=== PATIENT | female | born 1945 | race African-American/Black ===

== ENCOUNTER 2019-02-23 06:49 | Day surgery (SDC) | payer MEDICARE, MEDICAID ==
[~2019-02-23] VITALS: Ht 160 cm; Wt 49.0 kg
[~2019-02-23 06:49] MED LIST: LACTATED RINGERS 1,000 ML IV SCH
[2019-02-23] MEDS ORDERED: BUPIVACAINE HCL 0.5% (5MG/ML) 50ML ONE (09:01)
[2019-02-23] MEDS ORDERED: SKIN ADHESIVE 0.7 GM EA TOP ONE (09:01)
[2019-02-23] MEDS ORDERED: METHYLENE BLUE 50 MG/10 ML AMP IV ONE (09:23)
[2019-02-23] MEDS ORDERED: PROPOFOL 200MG/20ML VIAL IV ONE (09:50)
[2019-02-23] MEDS ORDERED: FENTANYL CITRATE/PF 50MCG/ML 2ML VIAL ONE (09:50)
[2019-02-23] MEDS ORDERED: MIDAZOLAM HCL 2 MG/2 ML VIAL ONE (09:50)
[2019-02-23] MEDS ORDERED: ATEN-42 PO (09:59)
[2019-02-23] MEDS ORDERED: DIAZ10TA PO (09:59)
[2019-02-23] MEDS ORDERED: CLON1PAT10 TD (09:59)
[2019-02-23] MEDS ORDERED: HYDR-3280 PO (09:59)
[2019-02-23] MEDS ORDERED: AMLO10TA80 PO (09:59)
[2019-02-23] MEDS ORDERED: DEXAMETHASONE 4MG/ML 1ML VIAL ONE (10:16)
[2019-02-23] MEDS ORDERED: SODIUM CHLORIDE 0.9% 10ML VIAL ONE (10:16)
[2019-02-23] MEDS ORDERED: LABETALOL HCL 5MG/ML VIAL 20ML IV ONE (10:16)
[2019-02-23] MEDS ORDERED: ONDANSETRON HCL 4MG/2ML INJ ONE (10:16)
[2019-02-23] MEDS ORDERED: LIDOCAINE HCL 1% 20ML VIAL (Pyxis) INJ ONE (10:16)
[2019-02-23] MEDS ORDERED: CEFAZOLIN SODIUM 1000MG/VIAL ONE (10:16)
[2019-02-23] MEDS ORDERED: MEPERIDINE HCL/PF 25MG/ML CPJ IV PRN (10:30)
[2019-02-23] MEDS ORDERED: LABETALOL 5MG/ML SYR 20 MG/4 ML SYRINGE IV PRN (10:30)
[2019-02-23] MEDS: HYDROMORPHONE HCL/PF 2MG/ML CPJ IV PRN ×2 (11:28→11:36)
[2019-02-23 11:36] VITALS: BP 184/108
[2019-02-23] MEDS: ONDANSETRON HCL 4MG/2ML INJ IV PRN ×2 (13:29→14:33)
[2019-02-23] MEDS ORDERED: METOCLOPRAMIDE HCL 10MG/2ML VIAL ONE (14:54)
[2019-02-23] MEDS ORDERED: METOCLOPRAMIDE HCL 10MG/2ML VIAL IV NR (15:00)
== END 2019-02-23 15:55 | disposition home or self-care (01) ==
LOC: OR 06:49
PROVIDERS: ATTEND Surgery
DX: C50.911 Malignant neoplasm of unspecified site of right female breast (principal); I10 Essential (primary) hypertension; M81.0 Age-related osteoporosis without current pathological fracture; C78.1 Secondary malignant neoplasm of mediastinum; M19.90 Unspecified osteoarthritis, unspecified site; Z79.899 Other long term (current) drug therapy; Z90.710 Acquired absence of both cervix and uterus; Z98.890 Other specified postprocedural states
CPT/HCPCS: 19301; 38525; 71045; 88307; 88309; 88331; 93005; J0690; J1100; J1170; J2250; J2405; J2704; J2765; J3010; J3490; J7040; Q9968